=== PATIENT | female | born 1965 | race Caucasian/White ===

== ENCOUNTER 2024-10-09 15:13 | Inpatient (IN) | payer BC, OTHER ==
[2024-10-09 17:46] LABS: BASOPHILS # 0.03 x10^3/uL (0.01-0.08); EOSINOPHIL % 1.8 % (0.7-5.8); EOSINOPHILS # 0.24 x10^3/uL (0.04-0.36); HEMATOCRIT 34.1 % (34.1-44.9); HEMOGLOBIN 10.9 g/dL (11.2-15.7); MEAN CELL VOLUME 96.1 fl (79.4-94.8); MEAN PLT VOLUME 9.1 fl (9.4-12.3); MONOCYTE # 0.42 x10^3/uL (0.24-0.86); MONOCYTE % 3.1 % (4.7-12.5); PLATELET COUNT 579 x10^3/uL (182-369); RDW 15.8 % (12.3-16.6)
[2024-10-09 17:48] LABS: VENOUS BASE EXCESS 3.5 mmol/L (-2-2); VENOUS O2 SATURATION 22.7 % (70-80); VENOUS PCO2 40.9 mmHg (38-52); VENOUS PH 7.45 (7.310-7.410)
[2024-10-09 18:16] LABS: POTASSIUM 4.1 mmol/L (3.5-5.1)
[2024-10-09 18:18] LABS: CALCIUM 9.9 mg/dL (8.5-10.1)
[2024-10-09 18:19] LABS: ALBUMIN 3.7 g/dl (3.4-5.0); BLOOD UREA NITROGEN 16.2 mg/dL (7-18)
[2024-10-09 18:21] LABS: THROAT:GRP A STREP NOT DETECTED (NOTDETECTED)
[2024-10-09 18:22] LABS: CREATININE 0.7 mg/dL (0.55-1.3)
[2024-10-09 18:23] LABS: BILIRUBIN,TOTAL 0.5 mg/dL (0.2-1); TOT PROT 8.5 g/dl (6.4-8.2)
[2024-10-09] MEDS ORDERED: CEFTRIAXONE 1 G/50 ML PREMIX 50 ML IVPB ONE (19:08)
[2024-10-09] MEDS: CEFTRIAXONE 1,000 MG in DEXTROSE 5%-WATER - 50 ML IVPB ONE (19:16)
[2024-10-09] MEDS ORDERED: AZITHROMYCIN IVPB 500 MG/250 ML BAG IVPB ONE (19:18)
[2024-10-09] MEDS: AZITHROMYCIN IVPB 500 MG in DEXTROSE 5%-WATER - 250 ML IVPB ONE (20:01)
[2024-10-10] MEDS ORDERED: ALPRAZolam 2 MG TABLET PO PRN (00:12)
[2024-10-10] MEDS: ACETAMINOPHEN 325 MG TABLET (FP) PO PRN (00:53)
[2024-10-10] MEDS: OLANZapine 10 MG TABLET PO SCH (00:53)
[2024-10-10] MEDS: ALPRAZolam 1 MG TABLET PO PRN (01:13)
[2024-10-10 02:55] VITALS: BMI 21.4
[2024-10-10 08:23] LABS: ABSOLUTE IMMATURE GRANULOCYTES 0.07 x10^3/uL (0.0-0.031); BASOPHILS # 0.04 x10^3/uL (0.01-0.08); EOSINOPHIL % 3.4 % (0.7-5.8); EOSINOPHILS # 0.38 x10^3/uL (0.04-0.36); HEMATOCRIT 32.9 % (34.1-44.9); HEMOGLOBIN 10.6 g/dL (11.2-15.7); MCHC 32.2 g/dl (32.2-35.5); MEAN CELL VOLUME 95.6 fl (79.4-94.8); MEAN PLT VOLUME 8.9 fl (9.4-12.3); MONOCYTE # 0.56 x10^3/uL (0.24-0.86); PLATELET COUNT 572 x10^3/uL (182-369); RDW 15.7 % (12.3-16.6)
[2024-10-10 09:20] LABS: POTASSIUM 3.8 mmol/L (3.5-5.1)
[2024-10-10] MEDS: SERTRALINE HCL 50 MG TABLET (FP) PO SCH (09:21)
[2024-10-10] MEDS: CEFTRIAXONE 1 G/50 ML PREMIX 50 ML IVPB SCH (09:21)
[2024-10-10 09:27] LABS: BLOOD UREA NITROGEN 17.8 mg/dL (7-18); CALCIUM 9.4 mg/dL (8.5-10.1)
[2024-10-10 09:31] LABS: CREATININE 0.6 mg/dL (0.55-1.3)
[2024-10-10] MEDS: AZITHROMYCIN IVPB 500 MG/250 ML BAG IVPB SCH (10:03)
[2024-10-10] MEDS ORDERED: ALBUTEROL SO4 2.5/IPRATROPIUM 0.5 INH SOL 3 ML VIAL.NEB. NEB PRN (12:18)
[2024-10-10] MEDS: guaiFENesin 200 MG/10 ML 10 ML UNIT-DOSE CUPS PO PRN (13:57)
[2024-10-10] MEDS: methylPREDNISolone NA SUCC 40 MG/1 ML VIAL IVPUSH SCH (14:09)
[2024-10-10] MEDS: ALBUTEROL SO4 2.5/IPRATROPIUM 0.5 INH SOL 3 ML VIAL.NEB. NEB SCH (15:33)
[2024-10-10] MEDS: DEXTROSE 5%-0.45% SALINE 1,000 ML IV SCH (21:51)
[2024-10-10] MEDS: HEPARIN NA (PORCINE) 5,000 UNITS/ML 1ML VIAL SQ SCH (21:51)
[2024-10-10] MEDS: BUDESONIDE/FORMETEROL FUMARATE 160/4.5 mcg INHALER IH SCH (21:53)
[2024-10-10] MEDS: LORazepam 2 MG/ML SDV VIAL IVPUSH ONE (23:22)
[2024-10-11 08:28] LABS: ABSOLUTE IMMATURE GRANULOCYTES 0.08 x10^3/uL (0.0-0.031); BASOPHILS # 0.05 x10^3/uL (0.01-0.08); EOSINOPHILS # 0.13 x10^3/uL (0.04-0.36); HEMATOCRIT 34.9 % (34.1-44.9); HEMOGLOBIN 11.1 g/dL (11.2-15.7); MCHC 31.8 g/dl (32.2-35.5); MEAN CELL VOLUME 96.1 fl (79.4-94.8); MEAN PLT VOLUME 9.3 fl (9.4-12.3); MONOCYTE # 0.52 x10^3/uL (0.24-0.86); MONOCYTE % 4.1 % (4.7-12.5); PLATELET COUNT 641 x10^3/uL (182-369); RDW 15.6 % (12.3-16.6)
[2024-10-11 08:58] LABS: POTASSIUM 4.1 mmol/L (3.5-5.1)
[2024-10-11 09:07] LABS: ALBUMIN 3.2 g/dl (3.4-5.0)
[2024-10-11 09:10] LABS: BLOOD UREA NITROGEN 16.4 mg/dL (7-18); CALCIUM 9.4 mg/dL (8.5-10.1); CREATININE 0.8 mg/dL (0.55-1.3)
[2024-10-11 09:12] LABS: BILIRUBIN,TOTAL 0.6 mg/dL (0.2-1); TOT PROT 7.4 g/dl (6.4-8.2)
[2024-10-11] MEDS: LORazepam 2 MG/ML SDV VIAL IVPUSH PRN (15:52)
[2024-10-11] MEDS: CLOTRIMAZOLE 10 MG TROCHE PO SCH (17:24)
[2024-10-11] MEDS: PANTOPRAZOLE SODIUM 40 MG VIAL IVPUSH SCH (21:30)
[2024-10-12] MEDS: ZOLPIDEM TARTRATE 5 MG TABLET PO PRN (21:06)
[2024-10-12] MEDS ORDERED: FAT EMULSION/OLIVE/SOY (CLINOLIPID) 250 ML EMULSION IV SCH (22:00)
[2024-10-13 08:37] LABS: ABSOLUTE IMMATURE GRANULOCYTES 0.06 x10^3/uL (0.0-0.031); BASOPHILS # 0.06 x10^3/uL (0.01-0.08); EOSINOPHIL % 1.6 % (0.7-5.8); EOSINOPHILS # 0.19 x10^3/uL (0.04-0.36); HEMATOCRIT 32.1 % (34.1-44.9); MCHC 31.2 g/dl (32.2-35.5); MEAN CELL VOLUME 97.6 fl (79.4-94.8); MEAN PLT VOLUME 9.1 fl (9.4-12.3); MONOCYTE % 6.1 % (4.7-12.5); PLATELET COUNT 588 x10^3/uL (182-369); RDW 15.7 % (12.3-16.6)
[2024-10-13 09:13] LABS: CALCIUM 9.1 mg/dL (8.5-10.1)
[2024-10-13 09:14] LABS: ALBUMIN 3.1 g/dl (3.4-5.0); BLOOD UREA NITROGEN 12.4 mg/dL (7-18)
[2024-10-13 09:17] LABS: CREATININE 0.6 mg/dL (0.55-1.3)
[2024-10-13 09:18] LABS: BILIRUBIN,TOTAL 0.4 mg/dL (0.2-1); TOT PROT 6.8 g/dl (6.4-8.2)
[2024-10-13] MEDS ORDERED: BENZOCAINE/MENTH/CETYLPYRD CL 1 EACH LOZENGE MM PRN (11:27)
[2024-10-13 18:06] LABS: FREE KAPPA,SERUM 26.4 mg/L (3.3-19.4)
[2024-10-14] MEDS: guaiFENesin 600 MG TABLET.ER (FP) PO SCH (14:19)
[2024-10-14] MEDS: clonazePAM 2 MG TABLET PO PRN (14:25)
[2024-10-14] MEDS: PANTOPRAZOLE 40 MG TABLET PO SCH (21:35)
[2024-10-14] MEDS: AMINO ACIDS 4.25%/D5W 1,000 ML IV SCH (21:36)
[2024-10-15 18:06] LABS: IG A QN SERUM. 379 mg/dL (87-352)
[2024-10-16] MEDS: SODIUM CHLORIDE 250 ML IV STA (10:47)
[2024-10-16] MEDS ORDERED: SODIUM CHLORIDE 250 ML IV ONE (16:45)
[2024-10-16] MEDS ORDERED: SODIUM CHLORIDE 1,000 ML IV SCH ×2 (17:15)
[2024-10-16] MEDS: SODIUM CHLORIDE 250 ML IV ONE (17:21)
[2024-10-16] MEDS: SODIUM CHLORIDE 1,000 ML IV SCH (17:55)
[2024-10-17 11:05] VITALS: BP 101/66; PULSE 80; RESP 19; TEMP 97.5
== END 2024-10-17 14:01 | disposition home health service (06) | DRG 179 ==
LOC: JER 15:13 → JERBED 19:00 → J8W 23:06
PROVIDERS: ADMIT Internal Medicine; ATTEND Internal Medicine
DX: J69.0 Pneumonitis due to inhalation of food and vomit (principal); F41.9 Anxiety disorder, unspecified; F32.A Depression, unspecified; J98.01 Acute bronchospasm; R13.10 Dysphagia, unspecified; J04.0 Acute laryngitis; F17.210 Nicotine dependence, cigarettes, uncomplicated
CPT/HCPCS: 0241U-QW; 36415; 70360-TC-FY; 71045-TC-FY; 71046-TC-FY; 74230-TC-FY; 80048; 80053; 82784; 82803; 82962; 83615; 83883; 84155; 84165; 85025; 87040; 87651; 88300-TC; 92611-GN; 93005; 93010; 94640; 97116-GP; 99285-25; J1644